=== PATIENT | male | born 1990 | race African-American/Black ===

== ENCOUNTER 2018-08-02 10:31 | Emergency (ER) | payer SELFPAY ==
[2018-08-02 10:42] VITALS: BP 132/71
--- NOTE | 2018-08-02 11:22 | ER Document Report ---
ED Skin Rash/Insect Bite/Abscs - General Chief Complaint: Rash Stated Complaint: RASH, SKIN ISSUE Time Seen by Provider: 08/02/18 11:11 - Related Data Allergies/Adverse Reactions: No Known Allergies Allergy (Unverified 08/02/18 10:33) Past Medical History - General Information source: Patient - Social History Smoking Status: Current Every Day Smoker Cigarette use (# per day): Yes Smoking Education Provided: No Frequency of alcohol use: Occasional Drug Abuse: None Lives with: Spouse/Significant other Family History: Reviewed & Not Pertinent Patient has suicidal ideation: No Patient has homicidal ideation: No - Past Medical History Cardiac Medical History: Reports: None Pulmonary Medical History: Reports: None EENT Medical History: Reports: None Neurological Medical History: Reports: None Renal/ Medical History: Reports: None. Denies: Hx Peritoneal Dialysis Malignancy Medical History: Reports None GI Medical History: Reports: None Musculoskeletal Medical History: Reports None Psychiatric Medical History: Reports: None Surgical Hx: Negative Review of Systems - Review of Systems Constitutional: No symptoms reported EENT: No symptoms reported Cardiovascular: No symptoms reported Respiratory: No symptoms reported Gastrointestinal: No symptoms reported Musculoskeletal: No symptoms reported Skin: See HPI Neurological/Psychological: No symptoms reported Physical Exam - Vital signs Vitals: Temp Pulse Resp BP Pulse Ox 98.4 F 65 16 132/71 H 97 08/02/18 10:41 08/02/18 10:41 08/02/18 10:41 08/02/18 10:41 08/02/18 10:41 Interpretation: Normal - General General appearance: Appears well, Alert In distress: None - HEENT Head: Normocephalic Eyes: Normal Ears: Normal Nasal: Normal Mouth/Lips: Normal Mucous membranes: Normal - Respiratory Respiratory status: No respiratory distress - Cardiovascular Rhythm: Regular - Abdominal Inspection: Normal Distension: No distension - Back Back: Other - SEE "SKIN" BELOW - Extremities General upper extremity: Normal inspection General lower extremity: Other - ONE MYCOTIC-APPEARING PATCH L. KNEE - Neurological Neuro grossly intact: Yes - Psychological Associated symptoms: Normal affect, Normal mood - Skin Skin Temperature: Warm Skin Moisture: Dry Skin Color: Normal Skin Turgor: Elastic Skin irregularity: Lesion - SEVERAL PLAQUE-LIKE AREAS ON TORSO, FLAT SCALY CENTERS WITH SHARP, SLIGHTLY RAISED MARGINS. NO "CHANEL TREE" APPEARANCE ON BACK. Course - Vital Signs Vital signs: Temp Pulse Resp BP Pulse Ox 98.4 F 65 16 132/71 H 97 08/02/18 10:41 08/02/18 10:41 08/02/18 10:41 08/02/18 10:41 08/02/18 10:41 Discharge - Discharge Clinical Impression: Tinea corporis Condition: Stable Disposition: HOME, SELF-CARE Instructions: Ringworm (Tinea Corporis) ([facility]), Fluconazole ([facility]) Additional Instructions: TAKE FLUCONAZOLE (DIFLUCAN) DIRECTED. CONTINUE USING CLOTRIMAZOLE CREAM TWICE A DAY. FOLLOW UP WITH BASEBALL GLOVE STUFFER IF NOT RESOLVED AFTER 3-4 WEEKS. Prescriptions: Fluconazole [Diflucan] 150 mg PO ASDIR #4 tablet Referrals: NGUYEN CAPELLAN DO [ACTIVE STAFF] - Follow up as needed
== END 2018-08-02 11:33 | disposition home or self-care (01) ==
LOC: ER 10:31
DX: B35.4 Tinea corporis (principal); F17.210 Nicotine dependence, cigarettes, uncomplicated
CPT/HCPCS: 99282

== ENCOUNTER 2018-09-08 16:13 | Emergency (ER) | payer SELFPAY ==
[2018-09-08] MEDS ORDERED: PREDNISONE 20 MG TABLET PO ONE (18:03)
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
[2018-09-08 18:58] VITALS: BP 136/82
== END 2018-09-08 18:58 | disposition home or self-care (01) ==
LOC: ER 16:13
DX: L30.9 Dermatitis, unspecified (principal); F17.200 Nicotine dependence, unspecified, uncomplicated
CPT/HCPCS: 99282; J7512